=== PATIENT | female | born 1960 | race Two or more races ===

== ENCOUNTER 2020-09-05 12:17 | Emergency (ER) | payer OTHER ==
[~2020-09-05] VITALS: Ht 157.5 cm; Wt 64.4 kg
[2020-09-05] MEDS ORDERED: CIPRO500 MG PO (15:01)
== END 2020-09-05 16:23 | disposition home or self-care (01) ==
LOC: ER 12:17
DX: S90.812A Abrasion, left foot, initial encounter (principal); W22.8XXA Striking against or struck by other objects, initial encounter; Y93.89 Activity, other specified; Y92.512 Supermarket, store or market as the place of occurrence of the external cause; Y99.8 Other external cause status